=== PATIENT | male | born 1970 | race American Indian/Alaskan Native ===

== ENCOUNTER 2020-10-23 07:19 | Emergency (ER) | payer OTHER ==
[2020-10-23 07:33] VITALS: BP 130/81
[2020-10-23] MEDS ORDERED: LIDOCAINE-MPF (1%) 10 MG/1 ML VIAL 5 ML INFILTRATI ONE (08:30)
[2020-10-23] MEDS ORDERED: AZITHROMYCIN 1 GM ORAL PWDR PACKET PO ONE (08:30)
--- NOTE | 2020-10-23 08:37 | Emergency Department Report ---
HPI - General Chief Complaint: Abdominal Pain Time Seen by Provider: 10/23/20 08:05 - HPI HPI: Room 3 The patient is a 50-year-old male present with a chief complaint of penile discharge. The patient states approximate 2 months ago he had an encounter with a woman who called him telling him she was diagnosed with an STD. The patient states he was not told her diagnosis but for the past month he has noticed penile discharge has been light green/yellow in color. Patient admits to slight dysuria and urinary frequency. Patient states his urine is malodorous. Patient denies history of fever. Patient complains of low back pain for the past 3 wee ks. The patient states he went to the health department several weeks ago and was told his test came back negative however he is still symptomatic ED Past Medical Hx - Past Medical History Previous Medical History?: Yes Hx Hypertension: Yes Hx GERD: Yes Additional medical history: urinary incontinence - Surgical History Past Surgical History?: No - Family History Family history: no significant - Social History Smoking Status: Former Smoker (None x2 years) Substance Use Type: None (Denies illicit drug use) - Medications Home Medications: Home Medications Medication Instructions Recorded Confirmed Last Taken Type Ciprofloxacin HCl [Cipro] 500 mg PO BID #14 tablet 08/15/14 Unknown Rx Ibuprofen [Motrin] 800 mg PO Q8H PRN #15 tablet 10/13/14 Unknown Rx Cyclobenzaprine [Flexeril 10mg] 10 mg PO TID PRN #15 tablet 10/14/14 Unknown Rx Sulfamethoxazole/Trimethoprim 1 each PO BID #14 tablet 10/23/20 Unknown Rx [Bactrim DS TAB] ED Review of Systems ROS: Stated complaint: abd pains Other details as noted in HPI Constitutional: denies: fever Eyes: denies: eye pain ENT: denies: throat pain Respiratory: no symptoms reported Cardiovascular: denies: chest pain Endocrine: no symptoms reported Gastrointestinal: denies: abdominal pain Genitourinary: dysuria, frequency, discharge Musculoskeletal: back pain Neurological: denies: headache Physical Exam - Physical Exam Vital Signs: Vital Signs 10/23/20 07:32 Temperature 98.4 F Pulse Rate 71 Respiratory 16 Rate Blood Pressure 130/81 O2 Sat by Pulse 97 Oximetry Physical Exam: GENERAL: The patient is well-developed well-nourished male lying on stretcher not appearing to be in acute distress. [] HEENT: Normocephalic. Atraumatic. Extraocular motions are intact. Patient has moist mucous membranes. NECK: Supple. Trachea midline CHEST/LUNGS: Clear to auscultation. There is no respiratory distress noted. HEART/CARDIOVASCULAR: Regular. There is no tachycardia. There is no gallop rub or murmur. ABDOMEN: Abdomen is soft, with trace suprapubic discomfort to palpation. No rebound or guarding. Patient has normal bowel sounds. There is no abdominal distention. SKIN: There is no rash. There is no edema. There is no diaphoresis. NEURO: The patient is awake, alert, and oriented. The patient is cooperative. The patient has no focal neurologic deficits. The patient has normal speech MUSCULOSKELETAL: There is no CVA tenderness. There is no evidence of acute injury. ED Course Vital Signs 10/23/20 07:32 Temperature 98.4 F Pulse Rate 71 Respiratory 16 Rate Blood Pressure 130/81 O2 Sat by Pulse 97 Oximetry ED Medical Decision Making - Lab Data Result diagrams: 10/23/20 09:05 10/23/20 09:05 Laboratory Tests 10/23/20 10/23/20 10/23/20 08:20 09:05 09:05 WBC 7.5 RBC 4.93 Hgb 15.6 H Hct 45.0 MCV 91 MCH 32 MCHC 35 H RDW 12.8 L Plt Count 300 Lymph % (Auto) 33.3 [facility] % (Auto) 7.1 Eos % (Auto) 1.9 Baso % (Auto) 0.8 Lymph # (Auto) 2.5 [facility] # (Auto) 0.5 Eos # (Auto) 0.1 Baso # (Auto) 0.1 Seg Neutrophils % 56.9 Seg Neutrophils # 4.3 Sodium 138 Potassium 3.9 Chloride 101.8 Carbon Dioxide 30 Anion Gap 10 BUN 11 Creatinine 1.2 Estimated GFR > 60 BUN/Creatinine Ratio 9 Glucose 113 H Calcium 9.1 Total Bilirubin 0.30 AST 26 ALT 28 Alkaline Phosphatase 85 Total Protein 7.2 Albumin 4.3 Albumin/Globulin Ratio 1.5 Urine Color Yellow Urine Turbidity Slightly-cloudy Urine pH 5.0 Ur Specific [place] 1.016 Urine Protein <15 mg/dl Urine Glucose (UA) Neg Urine Ketones Neg Urine Blood Sm Urine Nitrite Neg Urine Bilirubin Neg Urine Urobilinogen < 2.0 Ur Leukocyte Esterase Mod Urine WBC (Auto) 36.0 H Urine RBC (Auto) 4.0 U Epithel Cells (Auto) 6.0 Urine Bacteria (Auto) 2+ Urine Mucus Few - Differential Diagnosis Urethritis, UTI, pyelonephritis Critical care attestation.: If time is entered above; I have spent that time in minutes in the direct care of this critically ill patient, excluding procedure time. ED Disposition Clinical Impression: Urethritis, STD exposure, UTI (urinary tract infection) Disposition: TO HOME OR SELFCARE Is pt being admited?: No Does the pt Need Aspirin: No Condition: Stable Instructions: Urethritis, Adult Additional Instructions: Return to the emergency department should you develop worsening symptoms, inability to tolerate food or liquids, high fever or any other concerns Prescriptions: Sulfamethoxazole/Trimethoprim [Bactrim DS TAB] 1 each PO BID #14 tablet Referrals: [facility] [Provider Group] - 3-5 Days Forms: STI Treatment and Prevention Time of Disposition: 10:11
[2020-10-23] MEDS ORDERED: LIDOCAINE (1%) 10 MG/1 ML VIAL 20 ML MDV ONE (08:42)
[2020-10-23 08:45] LABS: Bacteria,Urine 2+ /HPF (Negative); Bilirubin,Urine NEG (Negative); Blood,Urine SM (Negative); Color,Urine Yellow (Yellow); Mucus,Urine FEW /HPF; Protein,Urine <15 mg/dL mg/dL (Negative); Urobilinogen,Urine < 2.0 mg/dL (<2.0)
[2020-10-23] MEDS: metroNIDAZOLE 500 MG TAB PO ONE ×2 (08:52→08:53)
[2020-10-23 09:30] LABS: Basophils # (Auto) 0.1 K/mm3 (0.0-0.1); Basophils % (Auto) 0.8 % (0.0-1.8); Eosinophils # (Auto) 0.1 K/mm3 (0.0-0.4); Eosinophils % (Auto) 1.9 % (0.0-4.3); Hemoglobin 15.6 gm/dl (11.8-15.2); Lymphocytes # (Auto) 2.5 K/mm3 (1.2-5.4); Lymphocytes % (Auto) 33.3 % (13.4-35.0); Mean Corpuscular HGB Conc 35 % (32-34); Mean Corpuscular Volume 91 fl (84-94); Monocytes # (Auto) 0.5 K/mm3 (0.0-0.8); Monocytes % (Auto) 7.1 % (0.0-7.3); Platelet Count 300 K/mm3 (140-440); Red Blood Count 4.93 M/mm3 (3.65-5.03); Red Cell Distribution Width 12.8 % (13.2-15.2)
[2020-10-23 09:50] LABS: Alanine Aminotransferase 28 units/L (7-56); Albumin 4.3 g/dL (3.9-5); BUN/Creatinine Ratio 9; Blood Urea Nitrogen 11 mg/dL (9-20); Calcium 9.1 mg/dL (8.4-10.2); Hemolysis Index 17
== END 2020-10-23 10:39 | disposition home or self-care (01) ==
LOC: ED 07:19
DX: N34.2 Other urethritis (principal); Z20.2 Contact with and (suspected) exposure to infections with a predominantly sexual mode of transmission; I10 Essential (primary) hypertension; K21.9 Gastro-esophageal reflux disease without esophagitis; Z87.891 Personal history of nicotine dependence; Z79.899 Other long term (current) drug therapy; Z98.890 Other specified postprocedural states
CPT/HCPCS: 36415; 80053; 81001; 85025; 87086; 87591; 96372; 99283; J0696

== ENCOUNTER 2021-03-28 14:50 | Emergency (ER) | payer OTHER ==
[2021-03-28 15:52] VITALS: BP 139/93
[2021-03-28] MEDS ORDERED: KETOROLAC 30 MG/1 ML INJ IV ONE (16:07)
[2021-03-28] MEDS ORDERED: SODIUM CHLORIDE 0.9% 1000 ML 1,000 ML IV ONE (16:07)
[2021-03-28 16:11] LABS: Basophils # (Auto) 0.1 K/mm3 (0.0-0.1); Basophils % (Auto) 0.6 % (0.0-1.8); Eosinophils # (Auto) 0.1 K/mm3 (0.0-0.4); Eosinophils % (Auto) 0.7 % (0.0-4.3); Hematocrit 50.8 % (35.5-45.6); Hemoglobin 16.7 gm/dl (11.8-15.2); Lymphocytes # (Auto) 2.3 K/mm3 (1.2-5.4); Lymphocytes % (Auto) 25.6 % (13.4-35.0); Mean Corpuscular HGB Conc 33 % (32-34); Mean Corpuscular Volume 92 fl (84-94); Monocytes # (Auto) 0.6 K/mm3 (0.0-0.8); Monocytes % (Auto) 6.7 % (0.0-7.3); Platelet Count 302 K/mm3 (140-440); Red Blood Count 5.55 M/mm3 (3.65-5.03)
[2021-03-28 16:28] LABS: Alanine Aminotransferase 34 units/L (7-56); Albumin 4.7 g/dL (3.9-5); BUN/Creatinine Ratio 14; Blood Urea Nitrogen 15 mg/dL (9-20); Calcium 9.8 mg/dL (8.4-10.2); Hemolysis Index 15
--- NOTE | 2021-03-28 16:53 | Cat Scan Report ---
CT ABDOMEN AND PELVIS WITHOUT CONTRAST INDICATION: flank pain with dysuria CONTRAST: Without IV COMPARISON: None available. All CT scans at this location are performed using CT dose reduction for ALARA by means of automated e xposure control. FINDINGS: Lung bases are clear. No pneumoperitoneum is seen. No evidence of bowel obstruction is seen . Appendix appears within normal limits. No inflammatory changes are seen. No abdominal or pelvic mas ses are noted. No lymphadenopathy is seen. No free fluid is noted. No significant abdominal wall brea iation is seen. Minimal fatty right inguinal hernia is seen. No urinary tract calculi or evidence of obstruction are noted. No renal lesions are obvious. Ureters and bladder show no obvious abnormalities though the bladder is not well distended. Prostate is semin al vesicles appear within normal limits. IMPRESSION: No acute abnormalities are seen Signer Name: Mack Spann MD Signed: 03/28/2021 4:48 PM Workstation Name: [id number]
[2021-03-28 17:05] LABS: Bacteria,Urine 1+ /HPF (Negative); Bilirubin,Urine NEG (Negative); Blood,Urine SM (Negative); Calcium Oxalate Crystals,Urine 3+; Color,Urine Yellow (Yellow); Mucus,Urine 1+ /HPF; Urobilinogen,Urine < 2.0 mg/dL (<2.0)
[2021-03-28] MEDS ORDERED: LIDOCAINE-MPF (1%) 10 MG/1 ML VIAL 5 ML INFILTRATI ONE (17:19)
--- NOTE | 2021-03-28 17:27 | Emergency Department Report ---
ED Male HPI - General Chief complaint: Abdominal Pain Stated complaint: ABD PAIN Time Seen by Provider: 03/28/21 15:49 Source: patient Mode of arrival: Ambulatory Limitations: No Limitations - History of Present Illness Initial comments: This is a 51-year-old male nontoxic, well nourished in appearance, no acute signs of distress presents to the ED with c/o of dysuria with left sided flank pain times several days. Patient denies any penile discharge. Patient does agree to a sexual intercourse with a new partner. Patient denies any abdominal or pelvic pain. Patient denies any testicular pain or swelling. Patient denies any penile ulcers or lesions. Patient denies any nausea, vomiting, chest pain, shortness of breathe, fever, chills, headache, back pain, numbness, tingling, stiff neck. Patient denies any other urinary symptoms. Patient denies any allergies or PMH. MD Complaint: dysuria -: days(s) Location: penis Radiation: none Severity: mild Severity scale (0 -10): 3 Quality: burning Consistency: constant Improves with: none Worsens with: urination dysuria. denies: discharge, swelling, mass, rash, urinary retention, blood in urine, fever, nausea/vomiting, incontinence - Related Data Sexually active: Yes Previous Rx's Medication Instructions Recorded Last Taken Type Ciprofloxacin HCl [Cipro] 500 mg PO BID #14 tablet 08/15/14 Unknown Rx Ibuprofen [Motrin] 800 mg PO Q8H PRN #15 tablet 10/13/14 Unknown Rx Cyclobenzaprine [Flexeril 10mg] 10 mg PO TID PRN #15 tablet 10/14/14 Unknown Rx Sulfamethoxazole/Trimethoprim 1 each PO BID #14 tablet 10/23/20 Unknown Rx [Bactrim DS TAB] Doxycycline Hyclate [Doxycycline 100 mg PO Q12HR #14 tab 03/28/21 Unknown Rx Hyclate TAB] Allergies Allergy/AdvReac Type Severity Reaction Status Date / Time No Known Allergies Allergy Unverified 06/15/13 09:05 ED Review of Systems ROS: Stated complaint: ABD PAIN Other details as noted in HPI Comment: All other systems reviewed and negative Constitutional: denies: chills, fever Eyes: denies: eye pain, eye discharge, vision change ENT: denies: ear pain, throat pain Respiratory: denies: cough, shortness of breath, wheezing Cardiovascular: denies: chest pain, palpitations Endocrine: no symptoms reported Gastrointestinal: denies: abdominal pain, nausea, diarrhea Genitourinary: dysuria. denies: urgency, frequency, hematuria, discharge, testicular pain, testicular mass Musculoskeletal: denies: back pain, joint swelling, arthralgia Skin: denies: rash, lesions Neurological: denies: headache, weakness, paresthesias Psychiatric: denies: anxiety, depression Hematological/Lymphatic: denies: easy bleeding, easy bruising ED Past Medical Hx - Past Medical History Previous Medical History?: Yes Hx Hypertension: Yes Hx GERD: Yes Additional medical history: urinary incontinence - Surgical History Past Surgical History?: No - Social History Smoking Status: Unknown if ever smoked - Medications Home Medications: Home Medications Medication Instructions Recorded Confirmed Last Taken Type Ciprofloxacin HCl [Cipro] 500 mg PO BID #14 tablet 08/15/14 Unknown Rx Ibuprofen [Motrin] 800 mg PO Q8H PRN #15 tablet 10/13/14 Unknown Rx Cyclobenzaprine [Flexeril 10mg] 10 mg PO TID PRN #15 tablet 10/14/14 Unknown Rx Sulfamethoxazole/Trimethoprim 1 each PO BID #14 tablet 10/23/20 Unknown Rx [Bactrim DS TAB] Doxycycline Hyclate [Doxycycline 100 mg PO Q12HR #14 tab 03/28/21 Unknown Rx Hyclate TAB] ED Physical Exam - General Limitations: No Limitations General appearance: alert, in no apparent distress - Head Head exam: Present: atraumatic, normocephalic - Eye Eye exam: Present: normal appearance - Neck Neck exam: Present: normal inspection, full ROM. Absent: lymphadenopathy - Respiratory Respiratory exam: Absent: respiratory distress - Cardiovascular Cardiovascular Exam: Present: regular rate - GI/Abdominal GI/Abdominal exam: Present: soft, normal bowel sounds. Absent: distended, tenderness, guarding, rebound, rigid, diminished bowel sounds - Extremities Exam Extremities exam: Present: normal inspection, full ROM - Back Exam Back exam: Present: normal inspection, full ROM. Absent: tenderness, CVA tenderness (R), CVA tenderness (L), muscle spasm, paraspinal tenderness, vertebral tenderness, rash noted - Neurological Exam Neurological exam: Present: alert, oriented X3, normal gait - Psychiatric Psychiatric exam: Present: normal affect, normal mood - Skin Skin exam: Present: warm, dry, intact, normal color. Absent: rash ED Course Vital Signs 03/28/21 03/28/21 14:55 17:14 Temperature 98.6 F Pulse Rate 91 H Respiratory 15 Rate Blood Pressure 139/93 O2 Sat by Pulse 95 100 Oximetry - Reevaluation(s) Reevaluation #1: 03/28/21 17:24 Patient is speaking in full sentences with no signs of distress noted. ED Medical Decision Making - Lab Data Result diagrams: 03/28/21 15:53 03/28/21 15:53 Lab Results 03/28/21 03/28/21 03/28/21 Range/Units 15:53 15:53 Unknown WBC 9.2 (4.5-11.0) K/mm3 RBC 5.55 H (3.65-5.03) M/mm3 Hgb 16.7 H (11.8-15.2) gm/dl Hct 50.8 H (35.5-45.6) % MCV 92 (84-94) fl MCH 30 (28-32) pg MCHC 33 (32-34) % RDW 13.0 L (13.2-15.2) % Plt Count 302 (140-440) K/mm3 Lymph % (Auto) 25.6 (13.4-35.0) % [place] % (Auto) 6.7 (0.0-7.3) % Eos % (Auto) 0.7 (0.0-4.3) % Baso % (Auto) 0.6 (0.0-1.8) % Lymph # (Auto) 2.3 (1.2-5.4) K/mm3 [place] # (Auto) 0.6 (0.0-0.8) K/mm3 Eos # (Auto) 0.1 (0.0-0.4) K/mm3 Baso # (Auto) 0.1 (0.0-0.1) K/mm3 Seg Neutrophils % 66.4 (40.0-70.0) % Seg Neutrophils # 6.1 (1.8-7.7) K/mm3 Sodium 141 (137-145) mmol/L Potassium 4.1 (3.6-5.0) mmol/L Chloride 102.2 (98-107) mmol/L Carbon Dioxide 25 (22-30) mmol/L Anion Gap 18 mmol/L BUN 15 (9-20) mg/dL Creatinine 1.1 (0.8-1.3) mg/dL Estimated GFR > 60 ml/min BUN/Creatinine Ratio 14 % Glucose 101 H (75-100) mg/dL Calcium 9.8 (8.4-10.2) mg/dL Total Bilirubin 0.30 (0.1-1.2) mg/dL AST 32 (5-40) units/L ALT 34 (7-56) units/L Alkaline Phosphatase 109 (35-129) units/L Total Protein 8.2 (6.3-8.2) g/dL Albumin 4.7 (3.9-5) g/dL Albumin/Globulin Ratio 1.3 % Urine Color Yellow (Yellow) Urine Turbidity Slightly-cloudy (Clear) Urine pH 5.0 (5.0-7.0) Ur Specific [place] 1.025 (1.003-1.030) Urine Protein 100 mg/dl (Negative) mg/dL Urine Glucose (UA) Neg (Negative) mg/dL Urine Ketones Tr (Negative) mg/dL Urine Blood Sm (Negative) Urine Nitrite Neg (Negative) Urine Bilirubin Neg (Negative) Urine Urobilinogen < 2.0 (<2.0) mg/dL Ur Leukocyte Esterase Tr (Negative) Urine WBC (Auto) 16.0 H (0.0-6.0) /HPF Urine RBC (Auto) 3.0 (0.0-6.0) /HPF U Epithel Cells (Auto) 2.0 (0-13.0) /HPF Urine Bacteria (Auto) 1+ (Negative) /HPF Calcium Oxalate Crystal 3+ Urine Mucus 1+ /HPF - Radiology Data [facility] [address] [place] [address] Cat Scan Report Signed Patient: ELIZABETH SPANN MR#: [id number] : 1970 Acct:[id number] Age/Sex: 51 / M ADM Date: 03/28/21 Loc: ED Attending Dr: Ordering Physician: MARZENA LOUIS NP Date of Service: 03/28/21 Procedure(s): CT abdomen pelvis wo con Accession Number(s): [id number] cc: MARZENA LOUIS NP CT ABDOMEN AND PELVIS WITHOUT CONTRAST INDICATION: flank pain with dysuria CONTRAST: Without IV COMPARISON: None available. All CT scans at this location are performed using CT dose reduction for ALARA by means of automated exposure control. FINDINGS: Lung bases are clear. No pneumoperitoneum is seen. No evidence of bowel obstruction is seen. Appendix appears within normal limits. No inflammatory changes are seen. No abdominal or pelvic masses are noted. No lymphadenopathy is seen. No free fluid is noted. No significant abdominal wall herniation is seen. Minimal fatty right inguinal hernia is seen. No urinary tract calculi or evidence of obstruction are noted. No renal lesions are obvious. Ureters and bladder show no obvious abnormalities though the bladder is not well distended. Prostate is seminal vesicles appear within normal limits. IMPRESSION: No acute abnormalities are seen Signer Name: Mack Spann MD Si gned: 03/28/2021 4:48 PM Workstation Name: [id number] Transcribed By: MARSHALL Dictated By: Mack Spann MD Electronically Authenticated By: Mack Spann MD Signed Date/Time: 03/28/211647 DD/ 43 TD/TT: - Medical Decision Making This is a 51-year-old female that presents with possible STD and UTI. Patient is stable was examined by me. There is no abdominal tenderness. No pelvic pain. UA obtained. Patient is treated with 1 g of Rocephin and will be discharged with doxycycline. Patient is notified of the lab results and the CT report with no questions noted by the patient. Patient was instructed to Follow-up with a primary care doctor in 3-5 days or if symptoms worsen and continue return to emergency room as soon as possible. At time of discharge, the patient does not seem toxic or ill in appearance. No acute signs of di stress noted. Patient agrees to discharge treatment plan of care. No further questions noted by the patient. Critical care attestation.: If time is entered above; I have spent that time in minutes in the direct care of this critically ill patient, excluding procedure time. ED Disposition Clinical Impression: Possible exposure to STD UTI (urinary tract infection) Qualifiers: Urinary tract infection type: acute cystitis Hematuria presence: without he maturia Qualified Code(s): N30.00 - Acute cystitis without hematuria Disposition: HOME / SELF CARE / HOMELESS Is pt being admited?: No Does the pt Need Aspirin: No Condition: Stable Instructions: Doxylamine tablets, Safe Sex Additional Instructions: Follow-up with a primary care doctor in 3-5 days or if symptoms worsen and continue return to emergency room as soon as possible. Prescriptions: Doxycycline Hyclate [Doxycycline Hyclate TAB] 100 mg PO Q12HR #14 tab Referrals: PRIMARY CARE, [Primary Care Provider] - 3-5 Days MIRZA FIORE MD [Staff Physician] - 3-5 Days Forms: Work/School Release Form(ED) Time of Disposition: 17:34
== END 2021-03-28 18:10 | disposition home or self-care (01) ==
LOC: ED 14:50
DX: N39.0 Urinary tract infection, site not specified (principal); I10 Essential (primary) hypertension; K21.9 Gastro-esophageal reflux disease without esophagitis; Z79.899 Other long term (current) drug therapy
CPT/HCPCS: 36415; 74176; 80053; 81001; 85025; 87086; 96361; 96372; 96374; 99284; J0696; J1885; J3490; J7030; Q0162